=== PATIENT | male | born 1985 ===

== ENCOUNTER 2019-03-02 09:37 | Emergency (ER) | payer OTHER ==
--- NOTE | 2019-03-02 10:59 | UC ---
Lower Extremity/Ankle HPI - HPI Summary HPI Summary: 33-year-old male presents with complaints of left foot pain and swelling. States onset on 2018 he returned from mountain [place]iking and noticed some swelling to the lateral aspect of his proximal left foot. The next day started having some pain with weightbearing which progressively worsened. States he has been using crutches and remaining nonweightbearing for the past 5 days however the pain is not improving. Patient has previous injury to the left ankle with screws in place to the medial malleolus. Denies any numbness or tingling. - History of Current Complaint Chief Complaint: UCLowerExtremity Stated Complaint: L ANKLE INJURY Time Seen by Provider: 03/02/19 10:31 Pain Intensity: 2 - Allergies/Home Medications Allergies/Adverse Reactions: Allergies Allergy/AdvReac Type Severity Reaction Status Date / Time No Known Allergies Allergy Verified 03/02/19 10:23 Home Medications: Home Medications NK [No Home Medications Reported] 03/02/19 [History Confirmed 03/02/19] PMH/Surg Hx/FS Hx/Imm Hx Previously Healthy: Yes - Denies significant PMH - Surgical History Surgical History: Yes Surgery Procedure, Year, and Place: ORIF left medial malleolus 2006 - Family History Known Family History: Positive: Non-Contributory - Social History Occupation: Employed Full-time Lives: Alone Alcohol Use: Occasionally Substance Use Type: Marijuana Substance Use Comment - Amount & Last Used: daily Smoking Status (MU): Unknown if Ever Smoked Amount Used/How Often: states socially Review of Systems All Other Systems Reviewed And Are Negative: Yes Constitutional: Positive: Negative Skin: Negative: Bruising Respiratory: Positive: Negative Cardiovascular: Positive: Negative Gastrointestinal: Positive: Negative Genitourinary: Positive: Negative Motor: Negative: Weakness Neurovascular: Negative: Decreased Sensation Musculoskeletal: Positive: Other: - See HPI Neurological: Positive: Negative Is Patient Immunocompromised?: No Physical Exam - Summary Physical Exam Summary: GENERAL APPEARANCE: Well developed, well nourished, alert and cooperative, and appears to be in no acute distress. CARDIAC: Normal S1 and S2. No S3, S4 or murmurs. Rhythm is regular. There is no peripheral edema, cyanosis or pallor. Extremities are warm and well perfused. Capillary refill is less than 2 seconds. Peripheral pulses intact. LUNGS: Clear to auscultation without rales, rhonchi, wheezing or diminished breath sounds. ABDOMEN: Positive bowel sounds. Soft, nondistended, nontender. No guarding or rebound. No masses or hepatosplenomegally. MUSKULOSKELETAL: Normal muscular development. Non-weightbearing. EXTREMITIES: Tenderness with moderate edema to the lateral aspect of the left dorsal foot over the 4th and 5th proximal metatarsals. No gross deformity or ecchymosis noted. Circulation and sensation intact. SKIN: Skin normal color, texture and turgor with no lesions or eruptions. Triage Information Reviewed: Yes Vital Signs: Initial Vital Signs Temp 98 F 03/02/19 10:23 Pulse 53 03/02/19 10:23 Resp 16 03/02/19 10:23 BP 122/72 03/02/19 10:23 Pulse Ox 99 03/02/19 10:23 Vital Signs Reviewed: Yes Diagnostics - Radiology No standard instances Radiology Interpretation Completed By: Radiologist Summary of Radiographic Findings: Order Information: FOOT LEFT 3+ VWS. Accession Number: [id number]. CPT: 91510. INDICATION: Left foot injury. TECHNIQUE: 3 views of the left foot were obtained. FINDINGS: There is mild soft tissue swelling about the medial midfoot. Postoperative changes are related to prior ORIF of the medial malleolus.The bone mineralization is within normal limits. No fracture is identified. There are incidental os peritoneum and has navicularis. Anatomic alignment is maintained. The joint spaces are preserved. IMPRESSION: 1. Mild soft tissue swelling as above. 2. Status post ORIF of the medial malleolus. 3. No acute fracture or traumatic malalignment. Lower Extremity Course/Dx - Course Course Of Treatment: 33-year-old male presents with complaints of left foot pain and swelling. States onset on 2018 he returned from [place]iking and noticed some swelling to the lateral aspect of his proximal left foot. The next day started having some pain with weightbearing which progressively worsened. States he has been using crutches and remaining nonweightbearing for the past 5 days however the pain is not improving. Patient has previous injury to the left ankle with screws in place to the medial malleolus. Denies any numbness or tingling. Afebrile. Vital signs stable. Patient had tenderness with moderate edema to the lateral aspect of the left dorsal foot over the 4th and 5th proximal metatarsals. No gross deformity or ecchymosis noted. Circulation and sensation intact. X-ray showed no acute fracture. Recommending conservative treatment for a left foot sprain including [id number] analgesics and RICE. Patient was provided crutches and instructed to progressively increase weightbearing as tolerated. He is to follow-up with orthopedic surgery in 5-7 days if symptoms are not improving. Anticipatory guidance and warning symptoms were reviewed with the patient. Verbalizes understanding and agrees with plan of care. - Differential Dx/Diagnosis Differential Diagnosis/HQI/PQRI: Contusion, Dislocation, Fracture (Closed), Sprain, Strain Provider Diagnosis: Sprain of left foot Discharge - Sign-Out/Discharge Documenting (check all that apply): Patient Departure All imaging exams completed and their final reports reviewed: Yes - Discharge Plan Condition: Stable Disposition: HOME Patient Education Materials: Foot Sprain (ED) Forms: *Work Release Referrals: No Primary Care Phys,NOPCP [Primary Care Provider] - Ruy Cuello MD [Medical Doctor] - Additional Instructions: The x-ray performed in the clinic today showed no evidence of a fracture. I suspect that you have a sprain of the foot. Rest the foot as much as possible. Continue to use your crutches. You may progressively increase weight bearing as tolerate. Apply ice to the affected area for 15-20 minutes at least 4 times a day to help with the pain and swelling. Elevate the foot to help reduce swelling. Take acetaminophen (Tylenol) or ibuprofen (Advil, Motrin) according to directions as needed for pain. Follow up with orthopedic surgery in 5-7 days if symptoms do not improve. Call for appointment. Seek immediate medical attention if you have severe pain not managed with pain medication, you are unable to walk or bear any weight, develop numbness or tingling in the foot or toes, or have any worsening of symptoms. - Billing Disposition and Condition Condition: STABLE Disposition: Home
== END 2019-03-02 11:23 | disposition home or self-care (01) ==
LOC: UCEAST 09:37
DX: S93.602A Unspecified sprain of left foot, initial encounter (principal); X58.XXXA Exposure to other specified factors, initial encounter; Y93.55 Activity, bike riding; Y92.828 Other wilderness area as the place of occurrence of the external cause; Y99.8 Other external cause status
CPT/HCPCS: 99202; G0463